=== PATIENT | male | born 1965 | race Caucasian/White ===

== ENCOUNTER → 2017-03-17 | Outpatient (CLI) | payer OTHER ==
[~2017-03-17] MED LIST: ASCO-63 PO; B-COTAB18 PO; VITA400C15 PO; [UNRECOGNIZED DRUG - OTHER] PO
[2017-03-17 14:35] LABS: CHOLESTEROL/HDL RATIO 3.1
== END | disposition home or self-care (01) ==
LOC: C.LABMFLN 07:03
PROVIDERS: ATTEND Family Medicine
DX: H02.60 Xanthelasma of unspecified eye, unspecified eyelid (principal); Z13.220 Encounter for screening for lipoid disorders